=== PATIENT | male | born 1940 | race Caucasian/White ===

== ENCOUNTER 2017-08-16 02:46 | Emergency (ER) | payer OTHER ==
[2017-08-16 02:59] VITALS: RESP 16
--- NOTE | 2017-08-16 03:07 | EDPHY ---
H & P Stated Complaint: R leg swellin g with pain- hx of DVT Time Seen by Provider: 08/16/17 02:54 HPI/ROS: Chief Complaint: Leg pain and swelling HPI: 77-year-old male with a history of factor 5 Leiden, DVT and PE in the past is complaining of right calf swelling and pain for the last 36 hours. Patient states the pain is minimal, at most a 2/10. He does feel that it is more swollen than usual however he does have chronic swelling secondary to his DVT in the past. He is currently on Pradaxa and has been compliant with his medications. Denies any chest pain or shortness of breath. No fevers or chills. No cough. No recent immobility. ROS: 10 point Review of Systems is negative except as noted in the HPI. PMH: Factor 5 Leiden, DVT, PE Social History: No smoking, no alcohol, no recreational drug use Family History: non-contributory Physical Exam: Gen: Awake, Alert, No Distress HEENT: Nose: no rhinorrhea Eyes: PERRLA, EOMI Mouth: Moist mucosa Neck: Supple, no JVD Chest: nontender, lungs clear to auscultation Heart: S1, S2 normal, no murmur Abd: Soft, non-tender, no guarding Back: no CVA tenderness, no midline tenderness Ext: Right calf is nontender, there is swelling, it is 2 cm greater in diameter than the left. It is not red, there is no warmth to touch. Skin: no rash Neuro: CN II-XII intact, Sensation grossly intact, Strength 5/5 in bilateral upper and lower extremities - Personal History Current Tetanus Diphtheria and Acellular Pertussis (TDAP): Yes Tetanus Vaccine Date: 10/2010 - Medical/Surgical History Hx Asthma: No Hx Chronic Respiratory Disease: No Hx Diabetes: No Hx Cardiac Disease: No Hx Renal Disease: No Hx Cirrhosis: No Hx Alcoholism: No Hx HIV/AIDS: No Hx Splenectomy or Spleen Trauma: No Other PMH: PE, DVT, factor 5 - Social History Smoking Status: Never smoked Constitutional: Initial Vital Signs Temperature (C) 36.5 C 08/16/17 02:54 Heart Rate 58 L 08/16/17 02:54 Respiratory Rate 16 08/16/17 02:54 Blood Pressure 150/95 H 08/16/17 02:54 O2 Sat (%) 95 10/27/17 02:54 O2 Delivery Mode Room Air Allergies/Adverse Reactions: IV CONTRAST Allergy (Severe, Uncoded 08/16/17 02:53) Vomiting Home Medications: Medication Instructions Recorded Albuterol Sulfate [Albuterol 1 puffs IH QID PRN 04/13/15 Inhaler Hfa] Codeine Phosphate/Guaifenesin 7.5 ml PO HS PRN 04/13/15 [Codeine-Guaifen 10-100 mg/5 ml] Dabigatran Etexilate Mesyl 150 mg PO BID 04/13/15 [Pradaxa 150 MG (*)] Glucosamine Sulfate [Glucosamine 500 mg PO DAILY 04/13/15 Sulfate 500 MG (OTC)] Cefixime [Suprax] 400 mg PO DAILY #4 capsule 04/15/15 Medical Decision Making - Diagnostics Imaging Results: Right leg duplex ultrasound shows some old 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 No acute DVT identified per Dr. Quach. ED Course/Re-evaluation: 77-year-old male with mild calf pain and swelling. No acute DVT on ultrasound but there findings consistent with his old DVTs in the past. He is anticoagulated affectively on Pradaxa. Patient will be discharged with follow up with primary care physician return for worsening symptoms. Departure - Departure Disposition: Home, Routine, Self-Care Clinical Impression: Leg pain Condition: Good Instructions: Leg Pain (ED) Additional Instructions: Follow up with primary care physician in 3-4 days for re-evaluation. Return to the emergency department for worsening leg pain, swelling, chest pain , shortness of breath, or any other concerns. Referrals: Lakhwinder Cheng MD [Primary Care Provider] - As per Instructions
[2017-08-16 04:26] VITALS: BP 137/90; PULSE 60; TEMP 97.9; O2SAT 97
== END 2017-08-16 04:23 | disposition home or self-care (01) ==
DX: M79.605 Pain in left leg (principal)

== ENCOUNTER → 2019-03-05 | Outpatient (CLI) | payer OTHER | LOC: BMCIMAGING 14:59 | PROVIDERS: ATTEND Internal Medicine Hematology & Oncology | DX: R22.41 Localized swelling, mass and lump, right lower limb (principal); M71.21 Synovial cyst of popliteal space [Baker], right knee ==